=== PATIENT | female | born 1960 | race Caucasian/White ===

== ENCOUNTER 2018-06-15 17:05 | Emergency (ER) | payer OTHER ==
[~2018-06-15] VITALS: Ht 162.6 cm; Wt 104.7 kg
[2018-06-15 18:12] LABS: HEMATOCRIT 43.9 % (36.0-46.0); HEMOGLOBIN 14.3 G/DL (11.9-15.5); MCH 29.5 PG (29.0-34.0); MCHC 32.6 G/DL (30.0-36.0); MCV 90.7 FL (83-99); PLATELET COUNT 283 K/uL (156-360); RBC DIS.WIDTH-CV 13.3 % (11.8-14.6); RBC DIS.WIDTH-SD 44.3 % (39-53); RED BLOOD COUNT 4.84 M/uL (3.80-5.20); WHITE BLOOD COUNT 12.9 K/uL (4.1-10.2)
[2018-06-15 18:25] LABS: ALBUMIN 4.6 g/dL (3.2-4.8); CHLORIDE 107 mEq/L (99-109); SODIUM 137 mEq/L (136-147)
[2018-06-15 18:27] LABS: GLUCOSE 114 mg/dL (70-99); TOTAL PROTEIN 7.6 g/dL (6.4-8.3)
[2018-06-15 18:29] LABS: TOTAL BILIRUBIN 0.4 mg/dL (0.0-1.0)
[2018-06-15 18:31] LABS: ALKALINE PHOSPHATASE 80 IU/L (3-129); CREATININE 0.9 mg/dL (0.6-1.3)
[2018-06-15 18:32] LABS: GFR ESTIMATE (CALCULATED) > 59 mL/min/; UREA NITROGEN (BUN) 13 mg/dL (9-23)
[2018-06-15 18:33] LABS: AST (GOT) 24 IU/L (2-34)
[2018-06-15 18:34] LABS: ALT (GPT) 34 IU/L (3-49)
[2018-06-15 18:44] LABS: APPEARANCE CLEAR ((CLEAR)); BILIRUBIN NEGATIVE; BLOOD NEGATIVE; COLOR STRAW ((YELLOW)); GLUCOSE (STRIP) NEGATIVE; KETONES NEGATIVE; LEUKOCYTES NEGATIVE; NITRITE NEGATIVE; PROTEIN (STRIP) NEGATIVE; SPECIFIC GRAVITY 1.006 (1.000-1.030); UCUL ADDED? NO; UROBILINOGEN 0.2 MG/DL (0.2-1.0)
[2018-06-15] MEDS ORDERED: MILK OF MAGN PO (21:22)
[2018-06-15] MEDS ORDERED: FLEET ENEMA-AD118 ML PR (21:22)
[2018-06-15 22:00] VITALS: BP 155/84
== END 2018-06-15 22:32 | disposition home or self-care (01) ==
LOC: EME 17:05
DX: K59.00 Constipation, unspecified (principal); R10.9 Unspecified abdominal pain; K58.9 Irritable bowel syndrome, unspecified
CPT/HCPCS: 80053; 81003; 85027; 99281; 99285; J7030